=== PATIENT | male | born 1960 | race African-American/Black ===

== ENCOUNTER 2018-09-30 20:34 | Observation (INO) ==
[2018-09-30] MEDS ORDERED: MECLIZINE 25 MG TABLET PO STA (21:09)
[2018-09-30] MEDS ORDERED: ONDANSETRON 4 MG/2 ML VIAL IV STA (21:09)
[2018-09-30 22:19] LABS: Basophils % 0.3 % (0.0-0.8); Eosinophils # 0.1 10*3/uL (0.0-0.87); Eosinophils % 0.8 % (0.00-10.9); Hematocrit 39.5 VOL% (42.0-52.0); Hemoglobin 12.5 GM/DL (14.0-18.0); Immature Granulocytes % 0.7 %; Immature Granulocytes Absolute 0.08 #; Lymphocytes # 1.8 10*3/uL (1.4-4.0); Lymphocytes % 14.9 % (21.2-54.2); Mean Corpuscular HGB Conc 31.6 GM/DL (32-36); Mean Corpuscular Hemoglobin 28 PG (27-34); Mean Corpuscular Volume 87.6 FL (87-102); Monocytes # 0.6 10*3/uL (0.11-0.8); Monocytes % 5.2 % (1.7-12.7); Neutrophils # 9.3 10*3/uL (1.4-7.4); Neutrophils % 78.1 % (38.7-73.9); Platelet Count 272 T/CUMM (130-400); Red Blood Count 4.51 MC/CUMM (3.8-5.5); Red Cell Distribution Width 12.9 % (9.3-17.3); White Blood Count 11.9 T/CUMM (4-12)
[2018-09-30 22:28] LABS: PT Patient Result 10.6 SECS
[2018-09-30 22:59] LABS: Apearance,Urine CLEAR (Clear); Bilirubin,Urine Negative (Negative); Blood, Urine Negative (Negative); Glucose,Urine (UA) Negative (Negative); Ketones,Urine Negative (Negative); Mucus,Urine Occasional /LPF (Occasional); Nitrite,Urine Negative (Negative); Protein,Urine Negative; RBC,Urine 5 /HPF (0-4); Urine Color Yellow (Yellow); Urine Specific Gravity 1.027 (1.001-1.035); Urine Urobilinogen < 2.0 EU/DL (0.2-1.0); WBC,Urine 1 /HPF (0-6)
[2018-09-30 23:01] LABS: Albumin 3.9 G/DL (3.4-5.0); Bilirubin,Total 0.4 MG/DL (0.2-1.0); Calcium 8.9 MG/DL (8.5-10.1); Osmolality,Calculated 280.4 MOS/KG (273-304); Potassium 3.9 MMOL/L (3.5-5.1); Total Protein 7.7 G/DL (6.4-8.3)
[2018-09-30 23:10] LABS: Barbiturates Screen,Urine Negative (Negative); Benzodiazepines Screen,Urine Negative (Negative); Cannabinoid Screen,Urine Negative (Negative); Opiate Screen,Urine Positive (Negative); Phencyclidine Screen,Urine Negative (Negative)
[2018-09-30] MEDS ORDERED: ASPIRIN EC 325 MG TABLET PO STA (23:24)
[2018-09-30] MEDS ORDERED: ACETAMINOPHEN 325 MG TABLET PO PRN (23:45)
[2018-09-30] MEDS ORDERED: ONDANSETRON 4 MG/2 ML VIAL IV PRN (23:45)
[2018-09-30] MEDS ORDERED: NICOTINE 21 MG/24 HR PATCH TRANSDERM PRN (23:45)
[2018-09-30] MEDS ORDERED: diphenhydrAMINE CAP 25 MG CAPSULE PO PRN (23:45)
[2018-09-30] MEDS ORDERED: MORPHINE 4 MG/1 ML VIAL IV PRN (23:45)
[2018-09-30] MEDS ORDERED: guaiFENesin/DM ER 600-30 MG TABLET PO PRN (23:45)
[2018-09-30] MEDS ORDERED: PROMETHAZINE 25 MG/1 ML VIAL IM PRN (23:45)
[2018-10-01 00:18] LABS: Risk Ratio 5.11; Thyroid Stimulating Hormone 0.607 uIU/ml (0.358-3.74); VLDL CHOLESTEROL 19.4 MG/DL
[2018-10-01] MEDS: ENOXAPARIN 40 MG/0.4 ML SYRINGE SUBCUT SCH (09:11)
[2018-10-01] MEDS: ASPIRIN 325 MG TABLET PO SCH (09:11)
[2018-10-01] MEDS: PANTOPRAZOLE 40 MG TABLET PO SCH (09:11)
[2018-10-01] MEDS ORDERED: ATORVASTATIN 40 MG TABLET PO SCH (21:00)
[2018-10-02 07:26] VITALS: BP 134/69
[2018-10-02] MEDS: ASPIRIN 325 MG TABLET PO SCH (08:28)
[2018-10-02] MEDS: ENOXAPARIN 40 MG/0.4 ML SYRINGE SUBCUT SCH (08:28)
[2018-10-02] MEDS: PANTOPRAZOLE 40 MG TABLET PO SCH (08:28)
== END 2018-10-02 11:56 | disposition home or self-care (01) ==
LOC: N.EDINP 20:34 → N.ED 20:34 → N.2E 10-01 01:20
PROVIDERS: ADMIT Emergency Medicine; ATTEND Emergency Medicine